=== PATIENT | female | born 1960 | race African-American/Black ===

== ENCOUNTER 2017-05-16 13:20 | Emergency (ER) | payer OTHER ==
[~2017-05-16] VITALS: Ht 160 cm; Wt 83.2 kg
[2017-05-16 15:24] VITALS: BP 138/70
[2017-05-16] MEDS ORDERED: KETOROLAC TROMETHAMINE 60 MG/2 ML VIAL IM ONE (15:45)
== END 2017-05-16 16:06 | disposition home or self-care (01) ==
LOC: EMS 13:22
DX: M75.41 Impingement syndrome of right shoulder (principal); M75.21 Bicipital tendinitis, right shoulder; M14.611 Charcot's joint, right shoulder
CPT/HCPCS: 96372; 99283; J1885